=== PATIENT | female | born 1995 | race Caucasian/White ===

== ENCOUNTER → 2020-05-08 | Outpatient (REF) | payer OTHER ==
[2020-05-08 19:17] LABS: APPEARANCE, URINE HAZY (CLEAR); BACTERIA, URINE AUTO 1+ (NEGATIVE); BILIRUBIN, URINE AUTO NEGATIVE (NEGATIVE); BLOOD, URINE BLOOD NEGATIVE (NEGATIVE); COLOR, URINE YELLOW (YELLOW); GLUCOSE, URINE (UA) AUTO NEGATIVE (NEGATIVE); KETONE, URINE AUTO NEGATIVE (NEGATIVE); LEUKOCYTE ESTERASE, URINE AUTO NEGATIVE (NEGATIVE); MUCUS, URINE SMALL (NEGATIVE); NITRITE, URINE AUTO NEGATIVE (NEGATIVE); PROTEIN, URINE AUTO 1+ mg/dL (NEGATIVE); RBC, URINE AUTO 1 /HPF (0-3); SPECIFIC GRAVITY URINE AUTO 1.024 (1.002-1.035); SQUAMOUS EPITHELIAL CELL UR AU 16 /HPF (0-6); UROBILINOGEN, URINE AUTO 0.2 mg/dL (0.0-2.0); WBC, URINE AUTO 0 /HPF (0-3)
== END ==
LOC: M LAB REF 16:56
PROVIDERS: ATTEND Physician Assistant
DX: N39.0 Urinary tract infection, site not specified (principal)

== ENCOUNTER → 2020-05-12 | Outpatient (CLI) | payer OTHER ==
--- NOTE | 2020-05-12 17:23 | REP ---
INDICATION: RT LOWER ABD PAIN. COMPARISON: None. TECHNIQUE: Transabdominal and transvaginal scanning performed. FINDINGS: Uterine dimensions are 6.9 x 3.6 x 5.4 cm. Endometrial echo is 5 mm in AP dimension and centrally placed. The bladder measures 10.4 x 9.1 x 9.2 cm. The right ovary has dimensions of 5.3 x 4.2 x 4.8 cm. It's Doppler flow is normal with a resistive index of 0.54. The left ovary dimensions are 2.6 x 1.5 x 1.7 cm. It's Doppler flow was normal with resistive index of 0.74. Hemorrhagic cyst is noted of the right ovary 4.7 x 3.8 x 4.3 cm. There is mild free fluid in the cul-de-sac. IMPRESSION: Hemorrhagic cyst right ovary with maximum diameter 4.7 cm. Mild free fluid. No torsion. <Electronically signed by Lane Aguilar > 05/12/20 [id number]
== END ==
LOC: M RAD 14:52
PROVIDERS: ATTEND Physician Assistant
DX: N83.201 Unspecified ovarian cyst, right side (principal)